=== PATIENT | male | born 1960 | race African-American/Black ===

== ENCOUNTER 2017-09-02 11:29 | Emergency (ER) | payer MEDICARE, MEDICAID ==
[2017-09-02 12:01] LABS: HEMATOCRIT 45.8 % (42.0-54.0); HEMOGLOBIN 15.1 g/dL (13.5-17.5); MCH 28.4 pg (26.0-34.0); MCV 86.1 fL (80.0-100.0); MEAN PLATELET VOLUME 9.4 fL (7.4-10.4); PLATELET COUNT 246 10x3/uL (130-400); RBC 5.32 10x6/uL (4.20-6.10); RDW 13.6 % (11.5-14.5); WBC 6.7 10x3/uL (4.8-10.8)
[2017-09-02 12:20] LABS: LYMPHOCYTES 63 % (15-50); MONOCYTES 5 % (2-11); NEUTROPHILS 31 % (40-80); PLATELET ESTIMATE NORMAL
== END 2017-09-02 12:54 | disposition home or self-care (01) ==
LOC: D.ER 11:29
PROVIDERS: Emergency Medicine
DX: J20.9 Acute bronchitis, unspecified (principal); I10 Essential (primary) hypertension

== ENCOUNTER 2018-03-13 00:32 | Emergency (ER) | payer MEDICARE, MEDICAID ==
[~2018-03-13] VITALS: Ht 175.3 cm; Wt 100.0 kg
[2018-03-13 00:40] VITALS: Ht 175.3 cm; Wt 100.0 kg
[2018-03-13] MEDS ORDERED: HYDROCODONE-APA1 TAB PO (00:42)
[2018-03-13] MEDS ORDERED: BYSTOLIC5 MG PO (00:42)
[2018-03-13] MEDS ORDERED: BAYER CHEWABLE81 MG PO (00:43)
[2018-03-13 01:13] LABS: BASOPHILS 0.1 % (0-2); EOSINOPHILS 0.8 % (0-7); HEMATOCRIT 44.6 % (42.0-54.0); HEMOGLOBIN 14.9 g/dL (13.5-17.5); IMMATURE GRANULOCYTES 0.4 % (0-5); LYMPHOCYTES 46.8 % (15-50); MCH 28.5 pg (26.0-34.0); MCHC 33.4 g/dL (31.0-37.0); MCV 85.4 fL (80.0-100.0); MEAN PLATELET VOLUME 9.5 fL (7.4-10.4); MONOCYTES 7.8 % (2-11); NEUTROPHILS 44.1 % (40-80); PLATELET COUNT 256 10x3/uL (130-400); RBC 5.22 10x6/uL (4.20-6.10); RDW 13.7 % (11.5-14.5); WBC 10.2 10x3/uL (4.8-10.8)
[2018-03-13 01:27] LABS: ALBUMIN 3.3 g/dL (3.4-5.0); ALKALINE PHOSPHATASE 159 U/L (46-116); ALT (SGPT) 26 U/L (10-68); BILIRUBIN - TOTAL 0.15 mg/dL (0.2-1.3); CALC OSMOLALITY 284 mosm/kg (275-300); CALCIUM 9.1 mg/dL (8.5-10.1); CARBON DIOXIDE 32.3 mmol/L (21.0-32.0); CHLORIDE - SERUM 105 mmol/L (98-107); CREATININE - SERUM 1.1 mg/dL (0.6-1.3); GLUCOSE 127 mg/dL (74-106); PROTEIN - SERUM 7.2 g/dL (6.4-8.2); SODIUM 142 mmol/L (136-145); UREA NITROGEN 13 mg/dL (7-18); eGFR NON AFRICAN AMERICAN 73 mL/min (90-120)
[2018-03-13 01:38] LABS: CKMB 1.2 U/L (0.0-3.6); CREATINE KINASE 231 UL (21-232)
[2018-03-13 01:39] LABS: TROPONIN-I < 0.017 ng/mL (0.000-0.060)
[2018-03-13 02:10] LABS: APPEARANCE CLEAR (CLEAR); BILIRUBIN NEGATIVE (NEGATIVE); COLOR YELLOW (YELLOW); GLUCOSE NEGATIVE (NEGATIVE); KETONE NEGATIVE (NEGATIVE); NITRITE NEGATIVE (NEGATIVE); PROTEIN NEGATIVE (NEGATIVE); UROBILINOGEN NORMAL (NORMAL)
[2018-03-13 02:11] LABS: BACTERIA NONE SEEN /hpf (NONE SEEN); EPITHELIAL CELLS 0-5 /hpf (0-5); RED CELLS - URINE NONE SEEN /hpf (0-5); WHITE CELLS - URINE 0-5 /hpf (0-5)
[2018-03-13] MEDS ORDERED: MECLIZINE HCL25 MG PO (02:47)
[2018-03-13 02:58] VITALS: BP 108/75
== END 2018-03-13 03:02 | disposition home or self-care (01) ==
LOC: D.ER 00:32
PROVIDERS: Family Medicine
DX: R42 Dizziness and giddiness (principal); I10 Essential (primary) hypertension

== ENCOUNTER 2018-10-04 14:48 | Emergency (ER) | payer MEDICARE, MEDICAID ==
[~2018-10-04] VITALS: Ht 175.3 cm; Wt 107.7 kg
[~2018-10-04 14:48] MED LIST: BAYER CHEWABLE81 MG PO; BYSTOLIC5 MG PO; HYDROCODONE-APA1 TAB PO; MECLIZINE HCL25 MG PO
[2018-10-04 14:58] VITALS: Ht 175.3 cm; Wt 107.7 kg
[2018-10-04] MEDS ORDERED: HYDROCHLOROTH12.5 M1 PO (15:00)
[2018-10-04] MEDS ORDERED: TORADOL10 MG PO (16:21)
[2018-10-04 16:56] LABS: ALBUMIN 3.5 g/dL (3.4-5.0); ANION GAP 13.8 mmol/L (8-16); BILIRUBIN - TOTAL 0.17 mg/dL (0.2-1.3); CALCIUM 9.6 mg/dL (8.5-10.1); CARBON DIOXIDE 29.4 mmol/L (21.0-32.0); CREATININE - SERUM 1.1 mg/dL (0.6-1.3); POTASSIUM - SERUM 4.2 mmol/L (3.5-5.1); PROTEIN - SERUM 7.9 g/dL (6.4-8.2)
[2018-10-04] MEDS ORDERED: LEVAQUIN750 MG PO (18:47)
[2018-10-04 20:24] VITALS: BP 139/85
== END 2018-10-04 20:26 | disposition home or self-care (01) ==
LOC: D.ER 14:48
PROVIDERS: Emergency Medicine
DX: J18.9 Pneumonia, unspecified organism (principal); R09.1 Pleurisy